=== PATIENT | male | born 1960 | race Caucasian/White ===

== ENCOUNTER 2024-04-15 08:17 | Emergency (ER) | payer OTHER ==
--- NOTE | 2024-04-15 09:08 | RAD REPORT ---
EXAM: XR RIGHT HAND HISTORY: Pain. PAIN COMPARISON: None TECHNIQUE: Multiple projections of the right hand submitted. FINDINGS: Soft tissue swelling is seen affecting the fifth finger.. No fracture or radiopaque foreign body. No soft tissue gas. .
--- NOTE | 2024-04-15 10:30 | EDPHYS ---
Physician Documentation [facility] Name: Kelvin De Anda Age: 63 yrs Sex: Male : 1960 Arrival Date: 04/15/2024 Time: 08:17 Bed 11 Private MD: ED Physician Kin Martin HPI: 04/15 10:23 This 63 yrs old Unknown Male presents to ER via Ambulatory with complaints of Dog Bite lashawn - right hand pinky. 10:23 The patient was bitten on the dorsal aspect of middle phalanx of right little finger lashawn and palmar aspect of middle phalanx of right little finger. Onset: The symptoms/episode began/occurred 6 day(s) ago. Animal information: The animal was reported to appear healthy. Animal's vaccinations are up to date. Secondary to the bite the patient reports pain, swelling, warmth. Associated signs and symptoms: Pertinent positives: bony tenderness, erythema at site, fluctuance, pain at site, swelling at site, tenderness. Severity of symptoms: At their worst the symptoms were moderate, in the emergency department the symptoms are unchanged. The patient has not experienced similar symptoms in the past. Historical: - Allergies: 08:54 No Known Allergies; hb - Home Meds: 08:54 None [Active]; hb - PMHx: 08:54 None; hb - PSHx: 08:54 Neck x 3; Knee; Left; hb - Immunization history:: Adult Immunizations up to date. - Infectious Disease History:: Denies. - Social history:: Smoking status: Patient denies any tobacco usage or history of. - Family history:: not pertinent. ROS: 10:23 Constitutional: Negative for fever, chills, and weight loss, Eyes: Negative for injury, lashawn pain, redness, and discharge, ENT: Negative for injury, pain, and discharge, Neck: Negative for injury, pain, and swelling, Cardiovascular: Negative for chest pain, palpitations, and edema, Respiratory: Negative for shortness of breath, cough, wheezing, and pleuritic chest pain, Abdomen/GI: Negative for abdominal pain, nausea, vomiting, diarrhea, and constipation, Back: Negative for injury and pain, : Negative for injury, bleeding, discharge, and swelling, Neuro: Negative for headache, weakness, numbness, tingling, and seizure, Psych: Negative for depression, anxiety, suicide ideation, homicidal ideation, and hallucinations, Allergy/Immunology: Negative for hives, rash, and allergies, Endocrine: Negative for neck swelling, polydipsia, polyuria, polyphagia, and marked weight changes, Hematologic/Lymphatic: Negative for swollen nodes, abnormal bleeding, and unusual bruising, 10:23 MS/extremity: Positive for bite, decreased range of motion, pain, paresthesias, swelling, tenderness, warmth, of the dorsal aspect of distal phalanx of right little finger, dorsal aspect of middle phalanx of right little finger, dorsal aspect of proximal phalanx of right little finger, palmar aspect of distal phalanx of right little finger and palmar aspect of middle phalanx of right little finger, Exam: 10:23 Constitutional: This is a well developed, well nourished patient who is awake, alert, lashawn and in no acute distress. Head/Face: Normocephalic, atraumatic. Eyes: Pupils equal round and reactive to light, extra-ocular motions intact. Lids and lashes normal. Conjunctiva and sclera are non-icteric and not injected. Cornea within normal limits. Periorbital areas with no swelling, redness, or edema. ENT: Nares patent. No nasal discharge, no septal abnormalities noted. Tympanic membranes are normal and external auditory canals are clear. Oropharynx with no redness, swelling, or masses, exudates, or evidence of obstruction, uvula midline. Mucous membranes moist. Neck: Trachea midline, no thyromegaly or masses palpated, and no cervical lymphadenopathy. Supple, full range of motion without nuchal rigidity, or vertebral point tenderness. No Meningismus. Chest/axilla: Normal chest wall appearance and motion. Nontender with no deformity. No lesions are appreciated. Cardiovascular: Regular rate and rhythm with a normal S1 and S2. No gallops, murmurs, or rubs. Normal PMI, no JVD. No pulse deficits. Respiratory: Lungs have equal breath sounds bilaterally, clear to auscultation and percussion. No rales, rhonchi or wheezes noted. No increased work of breathing, no retractions or nasal flaring. Abdomen/GI: Soft, non-tender, with normal bowel sounds. No distension or tympany. No guarding or rebound. No evidence of tenderness throughout. Back: No spinal tenderness. No costovertebral tenderness. Full range of motion. Skin: Warm, dry with normal turgor. Normal color with no rashes, no lesions, and no evidence of cellulitis. Neuro: Awake and alert, GCS 15, oriented to person, place, time, and situation. Cranial nerves II-XII grossly intact. Motor strength 5/5 in all extremities. Sensory grossly intact. Cerebellar exam normal. Normal gait. Psych: Awake, alert, with orientation to person, place and time. Behavior, mood, and affect are within normal limits. 10:23 Musculoskeletal/extremity: Extremities: noted in the dorsal aspect of distal phalanx of right little finger, dorsal aspect of middle phalanx of right little finger, dorsal aspect of proximal phalanx of right little finger, palmar aspect of distal phalanx of right little finger, palmar aspect of middle phalanx of right little finger, palmar aspect of proximal phalanx of right little finger and right little fingernail: bite, decreased ROM, erythema, pain, swelling, tenderness, Vital Signs: 08:52 BP 115 / 76; Pulse 69; Resp 16; Temp 97.4; Pulse Ox 97% on R/A; Weight 76.2 kg; Height hb 5 ft. 11 in. ; Pain 2/10; 08:52 Body Mass Index 23.43 (76.20 kg, 180.34 cm) hb 08:52 Pain Scale: Adult hb MDM: 08:27 Medical Screening Exam initiated lashawn 10:28 Differential diagnosis: tendon injury, vascular injury, cellulitis. Rabies Status: [facility] Rabies immunization is not indicated. Data reviewed: vital signs, nurses notes, radiologic studies. Consideration of Admission/Observation Escalation of care including admission/observation considered. I considered the following discharge prescriptions or medication management in the emergency department Medications were administered in the Emergency Department. See MAR. Independent interpretation of the following test(s) in the Emergency Department X-Ray: My interpretation is no fx , no fb, sts, no gas. Test considered but Not performed: Labs: no cbc , no comp met. Care significantly affected by the following chronic conditions: none. 04/15 08:27 Order name: Hand Right 3 View XRAY; Complete Time: 09:55 [facility] 04/15 10:23 Order name: Dressing - Wound [facility] Administered Medications: 08:57 Not Given (already taking at home): amoxicillin-[id number] mg PO once hb Disposition Summary: 04/15/24 10:30 Discharge Ordered Notes: Location: Home lashawn Problem: new lashawn Symptoms: have worsened lashawn Condition: Stable lashawn Diagnosis - Bitten by dog - infected right ringer , DIP , INTRAARTICULAR INVOLVMENT lashawn Followup: lashawn - With: Private Physician - When: Upon discharge from the Emergency Department - Reason: Recheck today's complaints, Continuance of care, Re-evaluation by your physician Discharge Instructions: - Discharge Summary Sheet lashawn - Animal Bite, Adult, [id number] lashawn - Wound Infection lashawn - Wound Infection, [id number] lashawn Forms: - Medication Reconciliation Form lashawn - Antibiotic Education lashawn - Prescription Opioid Use lashawn - Patient Portal Instructions lashawn - Leadership Thank You Letter lashawn Signatures: Dispatcher [employer] Kin Dong MD MD cha Baxter, Heather, RN RN hb
--- NOTE | 2024-04-15 10:30 | ER ---
Nurse's Notes [facility] Name: Kelvin De Anda Age: 63 yrs Sex: Male : 1960 Arrival Date: 04/15/2024 Time: 08:17 Bed 11 Private MD: Diagnosis: Bitten by dog-infected right ringer , DIP , INTRAARTICULAR INVOLVMENT Presentation: 04/15 08:52 Chief complaint: Bit by neighbor dog 7 days ago, on Augmentin and doxycycline, hb concerned wound is not healing. Coronavirus screen: At this time, the client does not indicate any symptoms associated with coronavirus-19. Ebola Screen: No symptoms or risks identified at this time. Initial Sepsis Screen: Does the patient meet any 2 criteria? No. Patient's initial sepsis screen is negative. Does the patient have a suspected source of infection? No. Patient's initial sepsis screen is negative. Risk Assessment: Do you want to hurt yourself or someone else? Patient reports no desire to harm self or others. Onset of symptoms was April 09, 2024. 08:52 Method Of Arrival: Ambulatory hb 08:52 Acuity: KOBE 3 hb Historical: - Allergies: 08:54 No Known Allergies; hb - Home Meds: 08:54 None [Active]; hb - PMHx: 08:54 None; hb - PSHx: 08:54 Neck x 3; Knee; Left; hb - Immunization history:: Adult Immunizations up to date. - Infectious Disease History:: Denies. - Social history:: Smoking status: Patient denies any tobacco usage or history of. - Family history:: not pertinent. Vital Signs: 08:52 BP 115 / 76; Pulse 69; Resp 16; Temp 97.4; Pulse Ox 97% on R/A; Weight 76.2 kg; Height hb 5 ft. 11 in. ; Pain 2/10; 08:52 Body Mass Index 23.43 (76.20 kg, 180.34 cm) hb 08:52 Pain Scale: Adult hb ED Course: 08:21 Patient arrived in ED. im 08:27 Kin Martin MD is Attending Physician. lashawn 08:49 Hand Right 3 View XRAY In Process Unspecified. EDMS 08:54 Triage completed. hb 08:55 Arm band placed on. hb Administered Medications: 08:57 Not Given (already taking at home): amoxicillin- mg PO once hb Outcome: 10:30 Discharge ordered by MD. hardin 10:38 Patient left the ED. hb Signatures: Dispatcher [employer] Kin Dong MD MD cha Baxter, Heather, RN RN Neela Elena
[2024-04-15 11:12] VITALS: BP 115/76; TEMP 97.4; O2SAT 97
== END 2024-04-15 10:38 | disposition home or self-care (01) ==
LOC: ER 08:17
DX: S61.256A Open bite of right little finger without damage to nail, initial encounter (principal); W54.0XXA Bitten by dog, initial encounter
CPT/HCPCS: 99281